=== PATIENT | female | born 1970 | race African-American/Black ===

== ENCOUNTER 2017-09-05 10:42 | Day surgery (SDC) | payer OTHER ==
[2017-09-05 11:13] LABS: Specific Gravity 1.025 (1.005-1.030)
[2017-09-05 11:14] LABS: Absolute Lymphocytes (CBC) 1.3 K/uL (0.7-4.9); Absolute Monocytes 0.3 K/uL (0.1-1.3); Absolute Neutrophil 2.5 K/uL (1.8-8.0); Basophils % 0.8 % (0-1.3); Eosinophils % 3.8 % (0-4.4); Hematocrit 35.8 % (36.0-45.0); Lymphocytes % 29.2 % (15.3-44.8); MCH 28.9 pg (27.0-35.0); MCV 89.6 fL (80-100); MPV 9.1 fL (7.6-11.3)
[2017-09-05 11:19] LABS: Potassium 4.1 mEq/L (3.6-5.0)
[2017-09-05] MEDS ORDERED: PROPOFOL 200 MG/20 ML VIAL IV ONE (11:30)
[2017-09-05] MEDS ORDERED: MIDAZOLAM HCL 2 MG/2 ML INJ ONE (11:30)
--- NOTE | 2017-09-05 11:30 | RAD REPORT ---
EXAM DESCRIPTION: RAD - Chest Pa And Lat (2 Views) - 09/05/2017 11:19 am CLINICAL HISTORY: Preop, chest pain COMPARISON: None. FINDINGS: The lungs are clear. The heart is normal in size. No displaced fractures. IMPRESSION: No acute or concerning finding suspected.
[2017-09-05] MEDS ORDERED: LIDOCAINE 2% MPF 5 ML VIAL ONE (11:31)
[2017-09-05] MEDS ORDERED: ROCURONIUM 50 MG/5 ML VIAL IV ONE (11:31)
[2017-09-05] MEDS ORDERED: FENTANYL CITR 100 MCG/2 ML ONE (11:32)
[2017-09-05] MEDS ORDERED: Ringers Lactate 1,000 ML IV ONE ×2 (11:47→14:25)
--- NOTE | 2017-09-05 12:17 | EKG ---
Test Date: 2017-09-05 Test Time: 11:03:02 Oven Technician: JACOB MEASUREMENT RESULTS: Intervals: Rate: 55 SD: 178 QRSD: 80 QT: 412 QTc: 394 [place]: P: 29 SD: 178 QRS: 42 T: 37 INTERPRETIVE STATEMENTS: Sinus bradycardia Otherwise normal ECG No previous ECG available for comparison Electronically Signed On 09-05-17 12:15:46 CDT by Brock Waldrop
[2017-09-05] MEDS ORDERED: CEFAZOLIN/SWI 1gm 1 GM/10 ML SYR ONE (12:19)
[2017-09-05] MEDS ORDERED: DEXAMETHASONE 10 MG/ML VIAL ONE (12:40)
[2017-09-05] MEDS ORDERED: ONDANSETRON 4 MG/2 ML VIAL ONE (13:13)
[2017-09-05] MEDS ORDERED: GLYCOPYRROLATE 0.2 MG/ML SYR ONE ×2 (13:15)
[2017-09-05] MEDS ORDERED: NEOSTIGMINE 1 MG/ML -5 ML SYRINGE ONE (13:30)
--- NOTE | 2017-09-05 13:45 | P.BOP ---
Preoperative diagnosis: incarcerated tender ventral hernia Postoperative diagnosis: same Primary procedure: open repair of incarcerated tender ventral hernia Powder Coater: Aundrea Vee Estimated blood loss: <20cc Specimen: hernia sac Findings: incarcerated omentum Anesthesia: General Complications: None
[2017-09-05] MEDS: MEPERIDINE HCL 50 MG/ML AMP ONE ×4 (13:49→14:27)
--- NOTE | 2017-09-06 01:31 | OP ---
Date of Procedure: 09/05/2017 Surgeon: Yosef Wills MD Pole Lift Operator: BOSSMAN Moffett. Preoperative Diagnosis: Incarcerated, tender ventral hernia. Postoperative Diagnoses: 1.Incarcerated, tender ventral hernia. 2.Morbid obesity. Procedure Performed: Open repair of an incarcerated, tender ventral hernia. Estimated Blood Loss: Less than 20 cc. Specimen: Hernia sac. Finding: Incarcerated omentum. Indications: This is a case of a 47-year-old patient who comes to us with a tender ventral hernia, i ncarcerated. The benefits, alternatives, and risks of repair with possible mesh were fully explained to the patient, which included, but are not limited to infection, bleeding, damage to adjacent struc tures, anesthesia complications, recurrence, MT, and even . She also understands this may not r elieve any symptoms. She might need more than one surgical intervention. She understands the import ance of losing weight. She signed a consent. Description Of Procedure: The patient was brought to the operating room, placed in supine position. Anesthesia was done without complication. Abdominal area was prepped and draped in a sterile fashio n. A time-out was called. Incision was made in the ventral region and carried down all the way down to fascia. We noticed a large incarcerated hernia, but the opening was not that big. So, we procee ded to carefully extend incision to the point that we could just verify the content of that incarcera tion, and it was just incarcerated omentum and could not be reduced back. It was just dense with adh esions to the hernia sac. So, we proceeded to ligate that omentum between Savannah's and then suture li gated. We checked that omentum was with no bleeding and then was able to be reduced into the abdomin al cavity. The hernia sac was removed. The fascial edges were cleaned. We noticed they could come together with #1 Prolene. So, we did that with multiple #1 Prolene in a [id number] fashion unti l we closed the defect. Subcutaneous tissue was closed with 3-0 chromic and skin in a subcuticular f ashion. The patient tolerated the procedure well. The patient was sent to recovery in stable condit ion. GENEVA/MARY ANN Voice ID: [id number] Report ID: [id number]
--- NOTE | 2017-09-06 01:37 | DS ---
Date of Discharge: 09/05/2017 Diagnoses: Incarcerated, tender ventral hernia with morbid obesity. Procedure: Open repair of an incarcerated, tender ventral hernia. Disposition: Home. Activity: As tolerated. No heavy lifting. Followup: Follow up in my office in 1 week. Call for appointment [phone]. Keep area dry for 48 ho urs and then may shower. Keep Steri-Strips intact. Medications: For medications, see orders. GENEVA/MARY ANN Voice ID: [id number] Report ID: [id number]
== END 2017-09-05 15:28 | disposition home or self-care (01) ==
LOC: OR 10:42
PROVIDERS: ATTEND Surgery
PROC: 0WQF0ZZ Repair Abdominal Wall, Open Approach (ICD-10-PCS; principal; 2017-09-05 12:15)
DX: K43.6 Other and unspecified ventral hernia with obstruction, without gangrene (principal); E66.01 Morbid (severe) obesity due to excess calories; I10 Essential (primary) hypertension; K21.9 Gastro-esophageal reflux disease without esophagitis
CPT/HCPCS: 36415; 71046; 80048; 81025; 85025; 88302; 93005; J0690; J1100; J2175; J2250; J2405; J2710; J3010